=== PATIENT | male | born 1950 | race Caucasian/White ===

== ENCOUNTER 2020-01-31 16:29 | Emergency (ER) | payer MEDICARE, MEDICAID, SELFPAY ==
--- NOTE | 2020-01-31 16:46 | DI.RAD.S_ITS ---
PROCEDURE: XR CHEST 1V INDICATIONS: chest pain TECHNIQUE: One view of the chest was acquired. COMPARISON: None. FINDINGS: Surgical changes and devices: None. Lungs and pleura: Lungs are clear. No pleural effusions or pneumothorax. Mediastinum: Mediastinal contours appear normal. Heart size is normal. Bones and chest wall: No suspicious bony lesions. Overlying soft tissues appear unremarkable. IMPRESSION: No acute disease Dictated by: Corey Ordoñez M.D. on 01/31/2020 at 17:12 Approved by: Corey Ordoñez M.D. on 01/31/2020 at 17:12
[2020-01-31 16:47] VITALS: BP 141/73; PULSE 64; RESP 18; TEMP 37.1; O2SAT 94; BMI 36.0
--- NOTE | 2020-01-31 16:50 | DI.CT.S_ITS ---
PROCEDURE: CT HEAD/BRAIN WO CON INDICATIONS: dizziness / no trauma/ on thinners TECHNIQUE: Noncontrast 4.5 mm thick angled axial sections acquired from the foramen magnum to the vertex, with coronal and sagittal reformats. For radiation dose reduction, the following was used: automated exposure control, adjustment of mA and/or kV according to patient size. COMPARISON: None. FINDINGS: Image quality: Excellent. CSF spaces: Basal cisterns are patent. No extra-axial fluid collections. The ventricles are symmetric in size and shape. Brain: No intracranial bleeds or masses. There is cerebral volume loss for age, with resultant ventricular and sulcal prominence. There are periventricular and deep white matter chronic small vessel ischemic changes. There is intracranial internal carotid artery atherosclerosis. Skull and face: Calvarium and visualized facial bones appear intact, without suspicious lesions. There are scattered areas of tiny foci of gas seen within the posterior soft tissues at the level of the skull base image one which are technically indeterminate in etiology or clinical significance. Postsurgical changes involving the anterior wall of the left maxillary sinus. IMPRESSION: No acute intracranial process. Scattered 1 mm foci of soft tissue gas possibly within vessels, at the posterior skull base. The exact etiology and clinical significance is unclear. Dictated by: Corey Ordoñez M.D. on 01/31/2020 at 17:08 Approved by: Corey Ordoñez M.D. on 01/31/2020 at 17:11
[2020-01-31 16:54] LABS: Add Manual Diff / Slide Review NO; Basophils Absolute Auto 100 /uL (0-100); Basophils Percent Auto 1.4 % (0-2); Eosinophils Absolute Auto 300 /uL (0-450); Eosinophils Percent Auto 4.6 % (2-4); Hematocrit 44.3 % (41-53); Hemoglobin 14.9 g/dL (13.5-17.5); Lymphocytes Absolute Auto 1900 /uL (1100-4500); Lymphocytes Percent Auto 27.9 % (25-40); Mean Corpuscular HGB Conc 33.6 % (30-36); Mean Corpuscular Hemoglobin 30.7 PG (26-34); Mean Corpuscular Volume 91.5 fL (80-100); Monocytes Absolute Auto 600 /uL (0-900); Monocytes Percent Auto 8.3 % (3-14); Neutrophils Absolute Auto 4000 /uL (1500-7000); Neutrophils Percent Auto 57.8 % (50-75); Platelet Count 182 X10^3/uL (150-400); Red Blood Cell Count 4.84 X10^6/uL (4.5-5.9); Red Cell Distribution Width 14.4 % (11.6-14.8); White Blood Cell Count 6.9 X10^3/uL (4.5-11.0)
--- NOTE | 2020-01-31 16:55 | PC.NURSE ---
Patient reports he takes unknown medication for cholesterol and gout. Does not know dose of lisinopril.
--- NOTE | 2020-01-31 17:14 | ED_ITS ---
HPI - Dizziness <Nicko Espinal MD - Last Filed: 01/31/20 19:04> General Chief Complaint: Dizziness Stated Complaint: DIZZY HEADACHE Time Seen by Provider: 01/31/20 17:13 Source: patient Mode of arrival: Wheelchair History of Present Illness HPI Narrative: CC: Dizziness HPI: The patient is a 69-year-old male who is retired and was camping. Just prior to coming into the emergency department he stood up and thought that he was going to fall over. He developed acute disequilibrium. He did not feel lightheaded as though he is going to pass out but that he was unsteady and going to pass out. He laid down in his tent and took a nap. When he woke up the entire world was spinning. He was intensely nauseous but did not have any vomiting. He did not pass out or fall. The patient states that he drove from the campground to the hospital. He has a past history of frequent headaches and he has a headache associated with this at this time. He will not specifically say where the headache is located at. He denies for photophobia or phonophobia. 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 He denies any numbness tingling paresthesias anesthesia is paresis or paralysis that are new. He has chronic numbness in his toes. He denies that he has had any change in vision or diplopia until I did a exam an eye movement. He denies any scotomata or partial loss of vision. He has had no chest pain cough shortness of breath difficulty in breathing. He has been nauseous without vomiting but no abdominal pain diarrhea change in bowel habits melena hematochezia. He denies any urinary symptoms. He does not use marijuana drink alcohol and has never smoke cigarettes. He admits to history of asthma but denies a history of diabetes mellitus pancreati tis hypertension congestive heart failure myocardial infarction or COPD. 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 He denies any recent head injury or fall. Related Data Home Medications Medication Instructions Recorded Confirmed apixaban [Eliquis] 5 mg PO BID 01/31/20 01/31/20 lisinopril mg PO BID 01/31/20 Previous Rx's Medication Instructions Recorded meclizine 25 mg PO TID PRN #14 tab 01/31/20 Allergies Allergy/AdvReac Type Severity Reaction Status Date / Time No Known Drug Allergies Allergy Verified 01/31/20 16:54 Review of Systems <Nicko Espinal MD - Last Filed: 01/31/20 19:04> Review of Systems Narrative: The patient's review of systems are all negative except for those mentioned in the history of present illness. Patient History <Nicko Espinal MD - Last Filed: 01/31/20 19:04> Social History Smoking Status: Never smoker Smoking Status: Never smoker alcohol intake frequency: 0-2 drinks per day Substance Use Type: does not use Exam <Nicko Espinal MD - Last Filed: 01/31/20 19:04> Narrative Exam Narrative: PHYSICAL EXAM: CONSTITUTIONAL: Awake, Alert, Oriented, Coherent, Cooperative in NAD. Does not appear toxic or ill. HEAD: AT/NC EENT: PERRL, FROM of eyes, no discharge, no nystagmus there is mild dysconjugate gaze on lateral movement of the eyes. The left eye seems to move slower than the right. EARS:No drainage from the ears, Tympanic membranes intact bilaterally, clear EAC NOSE:No epistaxis or nasal drainage MOUTH:Oral mucosa is moist and pink, posterior pharynx is without erythema or exudate. NECK: Supple, no obvious JVD, Trachea is midline without stridor, no palpable LN. SPINE: Palpation of the cervical, Thoracic, Lumbar or Sacral spine reveals no gross deformity or tenderness. No CVA tenderness. THORAX: No deformity, retractions, chest wall tenderness. LUNGS: Clear, symmetrical breath sounds without respiratory distress. HEART: Normal heart tones, regular rhythm and rate without murmur. ABDOMEN: Soft, non-tender, sounds without guarding, rebound, rigidity or palpable mass. EXTREMITIES: No edema, deformity, tenderness or cyanosis. SKIN: No rash, bruising, petechiae or purpura. NEURO: Awake, alert, oriented, conversive, cranial nerves II-XII are symmetrical , moves all 4 extremities and is ambulatory. Initial Vital Signs Initial Vital Signs: Vital Signs Temperature 98.8 F 01/31/20 16:47 Pulse Rate 64 01/31/20 16:47 Respiratory Rate 18 01/31/20 16:47 Blood Pressure 141/73 H 01/31/20 16:47 Pulse Oximetry 94 01/31/20 16:47 <Jarod Phillips DO - Last Filed: 01/31/20 19:20> Initial Vital Signs Initial Vital Signs: Vital Signs Temperature 98.8 F 01/31/20 16:47 Pulse Rate 64 01/31/20 16:47 Respiratory Rate 18 01/31/20 16:47 Blood Pressure 141/73 H 01/31/20 16:47 Pulse Oximetry 94 01/31/20 16:47 Course <Nicko Espinal MD - Last Filed: 01/31/20 19:04> Course Course Narrative: 1728: The patient's CT scan reveals no acute intracranial process. There is a scattered 1 mm foci of soft tissue gas possibly within vessels at the posterior skull base. The exact etiology and clinical significance is unclear. CXR: Chest x-ray reveals no acute cardiopulmonary pathology. 1731: Blood work ordered however laboratory values remain pending. Orders Ordered: ED Orders 01/31/20 16:46 XR chest 1V Stat Complete Blood Count AUTO DIFF Stat EKG-12 Lead Stat 01/31/20 16:50 CT head/brain wo con Stat 01/31/20 17:00 Partial Thromboplastin Time Stat Prothrombin Time INR Stat 01/31/20 17:32 CT angio head and neck Stat 01/31/20 17:49 Comprehensive Metabolic Panel Stat Lipase Stat Magnesium Stat Troponin & CK Cardiac Panel Stat Discontinued Medications Sodium Chloride (Normal Saline 0.9%) 1,000 mls @ 1,000 mls/hr IV BOLUS ONE Stop: 01/31/20 18:25 Last Admin: 01/31/20 17:40 Dose: 1,000 mls/hr Documented by: SILVIA Meclizine HCl (Antivert) 25 mg PO NOW ONE Stop: 01/31/20 17:27 Last Admin: 01/31/20 18:12 Dose: Not Given Documented by: SILVIA Meclizine HCl (Antivert) 25 mg PO NOW ONE Stop: 01/31/20 19:18 Methylprednisolone (Solu-Medrol 125 Mg Vial) 125 mg IV NOW ONE Stop: 01/31/20 17:27 Last Admin: 01/31/20 17:47 Dose: Not Given Documented by: SILVIA Ondansetron HCl (Zofran) 4 mg IV NOW ONE Stop: 01/31/20 17:35 Last Admin: 01/31/20 17:39 Dose: 4 mg Documented by: SILVIA Vital Signs Vital signs: Vital Signs - 8 hr 01/31/20 16:47 01/31/20 17:15 01/31/20 17:25 Temperature 98.8 F Pulse Rate 64 56 L 57 L Respiratory Rate 18 16 22 Blood Pressure 141/73 H Blood Pressure [Right Arm] 147/71 H 147/71 H Pulse Oximetry 94 98 93 01/31/20 18:04 Temperature Pulse Rate 55 L Respiratory Rate 22 Blood Pressure Blood Pressure [Right Arm] 127/64 Pulse Oximetry 94 <Jarod Phillips, - Last Filed: 01/31/20 19:20> Orders Ordered: ED Orders 01/31/20 16:46 XR chest 1V Stat Complete Blood Count AUTO DIFF Stat EKG-12 Lead Stat 01/31/20 16:50 CT head/brain wo con Stat 01/31/20 17:00 Partial Thromboplastin Time Stat Prothrombin Time INR Stat 01/31/20 17:32 CT angio head and neck Stat 01/31/20 17:49 Comprehensive Metabolic Panel Stat Lipase Stat Magnesium Stat Troponin & CK Cardiac Panel Stat Discontinued Medications Sodium Chloride (Normal Saline 0.9%) 1,000 mls @ 1,000 mls/hr IV BOLUS ONE Stop: 01/31/20 18:25 Last Admin: 01/31/20 17:40 Dose: 1,000 mls/hr Documented by: SILVIA Meclizine HCl (Antivert) 25 mg PO NOW ONE Stop: 01/31/20 17:27 Last Admin: 01/31/20 18:12 Dose: Not Given Documented by: SILVIA Meclizine HCl (Antivert) 25 mg PO NOW ONE Stop: 01/31/20 19:18 Methylprednisolone (Solu-Medrol 125 Mg Vial) 125 mg IV NOW ONE Stop: 01/31/20 17:27 Last Admin: 01/31/20 17:47 Dose: Not Given Documented by: SILVIA Ondansetron HCl (Zofran) 4 mg IV NOW ONE Stop: 01/31/20 17:35 Last Admin: 01/31/20 17:39 Dose: 4 mg Documented by: SILVIA Vital Signs Vital signs: Vital Signs - 8 hr 01/31/20 16:47 01/31/20 17:15 01/31/20 17:25 Temperature 98.8 F Pulse Rate 64 56 L 57 L Respiratory Rate 18 16 22 Blood Pressure 141/73 H Blood Pressure [Right Arm] 147/71 H 147/71 H Pulse Oximetry 94 98 93 01/31/20 18:04 Temperature Pulse Rate 55 L Respiratory Rate 22 Blood Pressure Blood Pressure [Right Arm] 127/64 Pulse Oximetry 94 MDM - Dizziness <Nicko Espinal MD - Last Filed: 01/31/20 19:04> Medical Records Attestation: I reviewed the patient's medical records. Lab Data Attestation: I reviewed the patient's lab results. Result diagrams: 01/31/20 16:46 01/31/20 17:49 Labs: Lab Results 01/31/20 01/31/20 01/31/20 Range/Units 16:46 17:00 17:49 WBC 6.9 (4.5-11.0) X10^3/uL RBC 4.84 (4.5-5.9) X10^6/uL Hgb 14.9 (13.5-17.5) g/dL Hct 44.3 (41-53) % MCV 91.5 (80-100) fL MCH 30.7 (26-34) PG MCHC 33.6 (30-36) % RDW 14.4 (11.6-14.8) % Plt Count 182 (150-400) X10^3/uL Neut % (Auto) 57.8 (50-75) % Lymph % (Auto) 27.9 (25-40) % [place] % (Auto) 8.3 (3-14) % Eos % (Auto) 4.6 H (2-4) % Baso % (Auto) 1.4 (0-2) % Neut # (Auto) 4000 (9494-5314) /uL Lymph # (Auto) 1900 (7600-1660) /uL [place] # (Auto) 600 (0-900) /uL Eos # (Auto) 300 (0-450) /uL Baso # (Auto) 100 (0-100) /uL PT 12.4 (10.1-12.7) SECONDS INR 1.1 (0.9-1.3) APTT 27 (26.4-36.2) SECONDS Sodium 137 (137-145) mmol/L Potassium 4.5 (3.4-5.1) mmol/L Chloride 107 (98-107) mmol/L Carbon Dioxide 26 (22-32) mmol/L BUN 17 (9-20) mg/dL Creatinine 0.95 (0.66-1.25) mg/dL Estimated GFR > 60.0 (>60) mL/min BUN/Creatinine Ratio 17.9 (6-22) Glucose 104 (80-110) mg/dL Calcium 9.3 (8.4-10.2) mg/dL Magnesium 2.2 (1.6-2.3) mg/dL Total Bilirubin 0.3 (0.2-1.3) mg/dL AST 29 (17-59) IU/L ALT 15 (<50) IU/L Alkaline Phosphatase 59 (38-126) U/L Total Creatine Kinase 93 (55-170) U/L CK-MB (CK-2) TNP CK-MB (CK-2) Rel Index TNP Troponin I < 0.012 (0.01-0.034) ng/mL Total Protein 6.2 L (6.3-8.2) g/dL Albumin 3.7 (3.5-5.0) g/dL Globulin 2.5 (1.7-4.1) g/dL Albumin/Globulin Ratio 1.5 (1.0-2.8) Lipase 127 (23-300) U/L Urine Dip Bedside Urine Glucose Negative Bedside Urine Bilirubin - Negative Bedside Urine Ketone - Negative Urine Specific [place] 1.020 Bedside Urine Occult Blood - Negative Bedside Urine pH 6.5 Bedside Urine Protein +/- 15 Bedside Urine Urobilinogen +/- 1mg Bedside Urine Nitrite - Negative Bedside Urine Leukocytes - Negative Esterase ECG Data Attestation: I personally reviewed and interpreted this ECG as follows: Interpretation: The patient's EKG obtained on January 30 at 4:45 p.m. reveals a sinus rhythm with a ventricular rate of 60. Intervals are normal. QTC is 414 milliseconds. [place] is normal. The patient has a Q-wave in lead III and a QS wave in lead V 1. The patient has nonspecific ST segment changes. T-waves are flat in lead III as well as V1. There are no other acute diagnostic ST segment changes to indicate either ischemia or injury pattern. <Jarod Alan, DO - Last Filed: 01/31/20 19:20> Lab Data Labs: Lab Results 01/31/20 01/31/20 01/31/20 Range/Units 16:46 17:00 17:49 WBC 6.9 (4.5-11.0) X10^3/uL RBC 4.84 (4.5-5.9) X10^6/uL Hgb 14.9 (13.5-17.5) g/dL Hct 44.3 (41-53) % MCV 91.5 (80-100) fL MCH 30.7 (26-34) PG MCHC 33.6 (30-36) % RDW 14.4 (11.6-14.8) % Plt Count 182 (150-400) X10^3/uL Neut % (Auto) 57.8 (50-75) % Lymph % (Auto) 27.9 (25-40) % [place] % (Auto) 8.3 (3-14) % Eos % (Auto) 4.6 H (2-4) % Baso % (Auto) 1.4 (0-2) % Neut # (Auto) 4000 (6405-4709) /uL Lymph # (Auto) 1900 (2757-5342) /uL [place] # (Auto) 600 (0-900) /uL Eos # (Auto) 300 (0-450) /uL Baso # (Auto) 100 (0-100) /uL PT 12.4 (10.1-12.7) SECONDS INR 1.1 (0.9-1.3) APTT 27 (26.4-36.2) SECONDS Sodium 137 (137-145) mmol/L Potassium 4.5 (3.4-5.1) mmol/L Chloride 107 (98-107) mmol/L Carbon Dioxide 26 (22-32) mmol/L BUN 17 (9-20) mg/dL Creatinine 0.95 (0.66-1.25) mg/dL Estimated GFR > 60.0 (>60) mL/min BUN/Creatinine Ratio 17.9 (6-22) Glucose 104 (80-110) mg/dL Calcium 9.3 (8.4-10.2) mg/dL Magnesium 2.2 (1.6-2.3) mg/dL Total Bilirubin 0.3 (0.2-1.3) mg/dL AST 29 (17-59) IU/L ALT 15 (<50) IU/L Alkaline Phosphatase 59 (38-126) U/L Total Creatine Kinase 93 (55-170) U/L CK-MB (CK-2) TNP CK-MB (CK-2) Rel Index TNP Troponin I < 0.012 (0.01-0.034) ng/mL Total Protein 6.2 L (6.3-8.2) g/dL Albumin 3.7 (3.5-5.0) g/dL Globulin 2.5 (1.7-4.1) g/dL Albumin/Globulin Ratio 1.5 (1.0-2.8) Lipase 127 (23-300) U/L Urine Dip Bedside Urine Glucose Negative Bedside Urine Bilirubin - Negative Bedside Urine Ketone - Negative Urine Specific [place] 1.020 Bedside Urine Occult Blood - Negative Bedside Urine pH 6.5 Bedside Urine Protein +/- 15 Bedside Urine Urobilinogen +/- 1mg Bedside Urine Nitrite - Negative Bedside Urine Leukocytes - Negative Esterase MDM Narrative Medical decision making narrative: Dr phillips: Received turned over from Dr. Espinal. Patient's history and physical. Perform my own independent exam. Patient states that he does feel better now than when he did when he 1st arrived. Dr. De La Rosa felt less likely this was a CVA/TIA and did feel that it was peripheral vertigo. Initially patient declined meclizine after my conversation with him he stated that he would be happy to take it. His CT/CTA was unremarkable. Will have the patient follow-up with his primary provider. He was given strict return precautions. He expressed understanding and agreement. Discharge Plan Departure Patient Disposition: Home Clinical Impression: Vertigo, Nausea, Diplopia Instructions: DI for Vertigo Activity Restrictions/Additional Instructions: Recommend you take all of your medications as directed. Contact your primary provider for follow-up. Return to the emergency department for any new or worsening symptoms Prescriptions: New meclizine 25 mg tablet 25 mg PO TID PRN (Reason: dizziness) Qty: 14 RF: 0 No Action lisinopril 5 mg Tablet PO BID RF: 0 Eliquis 5 mg Tablet 5 mg PO BID RF: 0
[2020-01-31 17:15] VITALS: BP 147/71; PULSE 56; RESP 16; O2SAT 98
--- NOTE | 2020-01-31 17:20 | PC.NURSE ---
patient complains of head ache 6/10 and denies chest pain and shortness of breath. He has pitting edema on his left lower leg. He states that since the light has been turned down his head ache has gone away.
[2020-01-31 17:25] VITALS: BP 147/71; PULSE 57; RESP 22; O2SAT 93
--- NOTE | 2020-01-31 17:32 | DI.CT.S_ITS ---
PROCEDURE: CT ANGIO HEAD AND NECK INDICATIONS: acute vertigo, without nystagmus TECHNIQUE: Pre-contrast 4.5 mm thick sections acquired from the foramen magnum to the vertex. After the administration of intravenous contrast, 1 mm thick sections acquired from the aortic arch through the [place]. Post-contrast 4.5 mm thick sections then re-acquired from the foramen magnum to the vertex. 3-dimensional [id number] (MIP) and/or volume rendering reformats were acquired of the central intracranial vasculature and neck separately. COMPARISON: [facility], CT, CT HEAD/BRAIN WO CON, 01/31/2020, 16:46. FINDINGS: Image quality: Excellent. BRAIN: CSF spaces: Ventricles are normal in size and shape. Basal cisterns are patent. No extra-axial fluid collections. Brain: No midline shift. No intracranial bleeds or masses. [place]-white matter interface appears intact. Left temporal encephalomalacia. Skull and face: Calvarium and facial bones appear intact, without suspicious lesions. Orbits appear normal. Sinuses: Sinuses and mastoids are clear. HEAD CT ANGIOGRAPHY: Anterior circulation: Intracranial internal carotid arteries are normal in size and flow. The flow within the paired anterior cerebral arteries is normal and symmetric. The flow within the middle cerebral arteries is normal and symmetric. The anterior communicating artery is seen. No aneurysms are seen. Posterior circulation: Visualized portions of the vertebral arteries demonstrate normal caliber, and join to form a normal appearing basilar artery. Flow within the posterior cerebral arteries is normal and symmetric. No aneurysms are seen. NECK CT ANGIOGRAPHY: Carotid system: The great vessels demonstrate a conventional anatomy as they arise from the aortic arch. The origins of the common carotid arteries appear patent. The common carotid arteries demonstrate normal caliber and courses. The bifurcation regions are both widely patent. The internal carotid arteries demonstrate normal calibers and courses. Posterior circulation: The origins of the vertebral arteries both appear widely patent. The more superior extracranial portions of both vertebral arteries also demonstrate normal courses and calibers. They join to form a normal appearing basilar artery. Soft tissues: Visualized neck soft tissues demonstrate no suspicious abnormalities. Bones: No suspicious bony lesions. Visualized cervical spine appears normally aligned. IMPRESSION: 1. No acute intracranial process. 2. No areas of hemodynamically significant stenosis, vascular occlusion or aneurysmal dilation within the anterior or posterior circulation. 3. No areas of hemodynamically significant stenosis, vascular occlusion or aneurysmal dilation within the neck vasculature. Any quantitative measurements of stenosis were performed using NASCET criteria. Dictated by: Carla Velasco M.D. on 01/31/2020 at 18:59 Approved by: Carla Velasco M.D. on 01/31/2020 at 19:03
[2020-01-31 17:39] LABS: INR 1.1 (0.9-1.3); Prothrombin Time 12.4 SECONDS (10.1-12.7)
[2020-01-31] MEDS: MECLIZINE HCL 12.5 MG TABLET 25 MG PO ×2 (17:39→19:21)
[2020-01-31] MEDS: ONDANSETRON 4 MG/2 ML INJ IV (17:39)
[2020-01-31] MEDS: methylPREDNISolone 125 MG/2 ML VIAL IV (17:39)
[2020-01-31] MEDS: SODIUM CHLORIDE 0.9% 1,000 ML 1000 ML IV (17:40)
[2020-01-31 17:42] LABS: PTT Partial Thromboplastin Tim 27 SECONDS (26.4-36.2)
--- NOTE | 2020-01-31 17:47 | PC.NURSE ---
Pt declined steroids. states in the past he had a bad reaction to them...I was shaking all over and I just threw them out the window. Dr. Espinal aware, no new orders.
[2020-01-31 18:04] VITALS: BP 127/64; PULSE 55; RESP 22; O2SAT 94
[2020-01-31 18:07] LABS: Alanine Aminotransferase 15 IU/L (<50); Albumin 3.7 g/dL (3.5-5.0); Albumin Globulin Ratio 1.5 (1.0-2.8); Alkaline Phosphatase 59 U/L (38-126); Aspartate Aminotransferase 29 IU/L (17-59); BUN Creatinine Ratio 17.9 (6-22); Bilirubin Total 0.3 mg/dL (0.2-1.3); Blood Urea Nitrogen 17 mg/dL (9-20); Calcium 9.3 mg/dL (8.4-10.2); Carbon Dioxide 26 mmol/L (22-32); Chloride 107 mmol/L (98-107); Creatine Kinase 93 U/L (55-170); Estimated Glomerular Filt Rate > 60.0 mL/min (>60); Globulin 2.5 g/dL (1.7-4.1); Glucose 104 mg/dL (80-110); HEMOLYSIS 20 (0-50); Lipase 127 U/L (23-300); Magnesium 2.2 mg/dL (1.6-2.3); Potassium 4.5 mmol/L (3.4-5.1); Sodium 137 mmol/L (137-145); Total Protein 6.2 g/dL (6.3-8.2)
--- NOTE | 2020-01-31 18:13 | PC.NURSE ---
Pt refused meclizine- states he feels better and It will just take it's course. Provider aware, no new orders.
[2020-01-31 18:19] LABS: Troponin I < 0.012 ng/mL (0.01-0.034)
[2020-01-31 19:15] VITALS: PULSE 53; RESP 23; O2SAT 96
[2020-01-31 19:32] VITALS: BP 137/68; PULSE 52; RESP 16; O2SAT 96
== END 2020-01-31 19:34 | disposition home or self-care (01) ==
PROVIDERS: Emergency Medicine; Emergency Provider Emergency Medicine
DX: R42 Dizziness and giddiness (principal); R11.0 Nausea; H53.2 Diplopia; Z79.01 Long term (current) use of anticoagulants; R07.9 Chest pain, unspecified; I80.9 Phlebitis and thrombophlebitis of unspecified site; I26.99 Other pulmonary embolism without acute cor pulmonale
CPT/HCPCS: 36415; 70450; 70496; 70498; 71045; 80053; 81003; 82550; 83690; 83735; 84484; 85025; 85610; 85730; 93005; 96361; 96374; 99285; J2405; J2930

== ENCOUNTER 2024-10-06 19:18 | Emergency (ER) | payer MEDICARE, MEDICAID, SELFPAY ==
[2024-10-06 19:49] VITALS: BP 147/75; PULSE 63; RESP 16; TEMP 36.9; O2SAT 93; BMI 39.5
--- NOTE | 2024-10-06 19:58 | DI.RAD.S_ITS ---
PROCEDURE: XR TIBIA FUBULA RT 2V INDICATIONS: hit self in right leg with sledge hammer on eliquis TECHNIQUE: 2 views of the tibia and fibula were acquired. COMPARISON: None. FINDINGS: Bones: No fractures or dislocations. No suspicious bony lesions. Soft tissues: No suspicious soft tissue calcifications or masses. Atherosclerotic vascular calcifications. IMPRESSION: No acute bony abnormality. Dictated by: Joe Rivera M.D. on 10/06/2024 at 20:26 Approved by: Joe Rivera M.D. on 10/06/2024 at 20:26
[2024-10-06 22:18] VITALS: BP 157/80; PULSE 57; RESP 20; TEMP 36.4; O2SAT 97
== END 2024-10-06 23:17 | disposition left against medical advice (07) ==
PROVIDERS: Emergency Provider Emergency Medicine
DX: S89.81XA Other specified injuries of right lower leg, initial encounter (principal); W22.8XXA Striking against or struck by other objects, initial encounter; Z79.01 Long term (current) use of anticoagulants
CPT/HCPCS: 73590; 99281